=== PATIENT | female | born 1980 | race Caucasian/White ===

== ENCOUNTER 2016-11-09 09:57 | Day surgery (SDC) | payer OTHER ==
[~2016-11-09 09:57] MED LIST: Lactated Ringers 1,000 ML IV SCH
[2016-11-09] MEDS ORDERED: Sodium Chloride 0.9% 2.5 ML Syringe FLUSH PRN (10:11)
[2016-11-09] MEDS ORDERED: fentaNYL 100 MCG/2 ML SDV IVPUSH PRN (10:11)
[2016-11-09] MEDS ORDERED: Sodium Chloride 0.9% 10 ML Syringe FLUSH PRN (10:11)
--- NOTE | 2016-11-09 10:30 | PCM.PREANE ---
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: Musculoskeletal History: Reports: None Neurological History: Reports: Other (see below) Other Neuro History: hx of motion sickness Psychiatric History: Reports: None Endocrine/Metabolic History: Reports: Obesity/BMI 30+ Hematologic History: Reports: None Immunologic History: Reports: None Oncologic (Cancer) History: Reports: None Dermatologic History: Reports: None - Past Surgical History Head Surgeries/Procedures: Reports: None HEENT Surgical History: Reports: Oral surgery Cardiovascular Surgical History: Reports: None Respiratory Surgical History: Reports: None GI Surgical History: Reports: Appendectomy, Other (see below) Other GI Surgeries/Procedures: excision of Pilonidal Cyst Female Surgical History: Reports: D&C Endocrine Surgical History: Reports: None Neurological Surgical History: Reports: None Musculoskeletal Surgical History: Reports: None Oncologic Surgical History: Reports: None - SUBSTANCE USE Smoking Status *Q: Current Every Day Smoker (1/2-1 ppd) Tobacco Use Within Last Twelve Months: Cigarettes Recreational Drug Use History: No - HOME MEDS Home Medications: Home Meds Multivitamin [Daily Multiple Vitamin] 1 tab PO DAILY 11/08/16 [History] - CURRENT (IN HOUSE) MEDS Current Meds: Current Medications Fentanyl (Sublimaze) 50 mcg IVPUSH Q5M PRN PRN Reason: Pain (severe 7-10) Stop: 11/10/16 10:11 Lactated Ringer's (Ringers, Lactated) 1,000 mls @ 125 mls/hr IV ASDIRECTED [place] Sodium Chloride (Saline Flush) 10 ml FLUSH ASDIRECTED PRN PRN Reason: Keep Vein Open Sodium Chloride (Saline Flush) 2.5 ml FLUSH ASDIRECTED PRN PRN Reason: Keep Vein Open Preanesthetic Assessment - ANESTHESIA/TRANSFUSION/FAMILY HX Anesthesia/Transfusion History: Prior Anesthesia Type of Anesthesia Reaction: Denies: Allergy, Anesthesia Awareness, Excessive Somnolence, Excessive Nausea/Vomiting, Excessive Itching, Excessive Shivering, Malignant Hyperthermia, Malignant Hyperthermia, Family History, Pseudocholinesterase Deficiency, Pseudocholinesterase Deficiency, Family History of, Urinary Retention, Unknown, Other (see below) Family History of Anesthesia Reaction: No Other Intubation History Comment: no known problems - REVIEW OF SYSTEMS Constitutional: Reports: no symptoms 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 Respiratory: Reports: no symptoms Cardiovascular: Reports: no symptoms GI: Reports: no symptoms Other: Reports: None - PHYSICAL ASSESSMENT Height: 1.64 m Weight: 84.368 kg ASA Class: 2 Mental Status: Alert & Oriented x3 Airway Class: Mallampati = 2 Dentition: Reports: Normal Dentition (lower retainer) Thyro-Mental Finger Breadths: 3 Mouth Opening Finger Breadths: 3 ROM/Head Extension: Full Respiratory Status: lungs clear to auscultation bilaterally Cardiovascular Status: regular rate & rhythm, normal S1, S2, no murmur, blood pressure WNL - ALLERGIES Allergies/Adverse Reactions: Allergies Allergy/AdvReac Type Severity Reaction Status Date / Time Penicillins Allergy Rash Verified 11/08/16 16:44 - BLOOD Blood Available: No - ANESTHESIA PLAN Preop Beta Cesar: No Anesthesia Type Planned: General Anesthesia - ACKNOWLEDGEMENTS Pt an Appropriate Candidate for the Planned Anesthesia: Yes Alternatives and Risks of Anesthesia Discussed w Pt/Guardian: Yes Pt/Guardian Understands and Agrees with Anesthesia Plan: Yes
[2016-11-09] MEDS ORDERED: Scopolamine 1.5 MG Transdermal Patch TRDERM PRN (10:31)
[2016-11-09] MEDS ORDERED: Lidocaine 2% 5 ML SDV ONE (11:06)
[2016-11-09] MEDS ORDERED: Ondansetron 4 MG/2 ML SDV ONE (11:06)
[2016-11-09] MEDS ORDERED: fentaNYL 250 MCG/5 ML SDV ONE (11:07)
[2016-11-09] MEDS ORDERED: Propofol 200 MG/20 ML SDV ONE (11:07)
[2016-11-09] MEDS ORDERED: Midazolam 1 MG/ML 2 ML SDV ONE (11:07)
[2016-11-09] MEDS ORDERED: Phenylephrine/Normal Saline 100 MCG/ML 10 ML Syringe ONE (12:07)
--- NOTE | 2016-11-09 12:24 | PCM.OPNOTE ---
- General Post-Op/Procedure Note Date of Surgery/Procedure: 11/09/16 Operative Procedure(s): suction dilatation and curettage Findings: Uterus sounds to 9 cm, anteverted, cervix 10 mm dilated, moderate tissue obtained. Pre Op Diagnosis: incomplete Post-Op Diagnosis: Same Anesthesia Technique: General ET tube Primary Surgeon: Kell Jones Anesthesia Provider: Keyshawn Knight Pathology: products of conception EBL in mLs: 100 Complications: None Known Condition: Good
[2016-11-09] MEDS ORDERED: Meperidine PF 25 MG/ML Syringe ONE (12:29)
--- NOTE | 2016-11-09 13:16 | OR ---
SURGEON: Kell Jones M.D. DATE OF PROCEDURE: 11/09/2016 PREOPERATIVE DIAGNOSIS: Incomplete miscarriage. POSTOPERATIVE DIAGNOSIS: Incomplete miscarriage. PROCEDURE: Suction dilatation and curettage. ANESTHESIA: General endotracheal. ESTIMATED BLOOD LOSS: 100 mL. FINDINGS: Uterus is anteverted, sounded to 9 cm. Cervix was dilated to 10 mm. A moderate amount of tissue was obtained. COMPLICATIONS: None known. DISPOSITION: Stable to recovery. BRIEF HISTORY: This is a 35-year-old female. She is G7, P3. She had an abnormal . She would currently be approximately 10 weeks' gestation. There were three small cystic areas in the endometrium none of which developed into a significant gestational sac, and no embryo was ever identified. Her hormone hCG level had fallen slightly but was still above 10,000. She has received 3 trials of Cytotec and has been unable to pass the tissue at home. She received Cytotec 4 days ago as well as Methergine and over the weekend she had significant bleeding. She states that there was an episode where she felt very dizzy but she did not go to the emergency room. She called yesterday to report that she felt that she had completed the miscarriage as her bleeding had been resolved, however, ultrasound yesterday still showed a 16 mm thickened endometrium with Doppler flow. Therefore, I did recommend proceeding with a suction D and C, with risks discussed including bleeding, infection, uterine perforation with injury to surrounding organs, risk of hysterectomy, risk of Asherman syndrome, and risk of anesthesia. Understanding all these risks, she does desire to proceed. DESCRIPTION OF PROCEDURE: With the patient in the dorsal lithotomy position, under adequate general endotracheal anesthesia, the perineum and vagina were prepped with Betadine and draped in usual fashion for vaginal surgery. A bimanual examination was performed with the finding of a 9-week size anteverted uterus. The cervix completely dilated. I was able to pass my finger into the cervical canal where tissue was obtained. A speculum was then placed in the vagina. The anterior cervix was grasped with an Allis clamp. A ring forceps was placed through the open cervical os and further tissue was obtained. This was sent as separate specimens as they were visible at the time of speculum examination. The uterus was then sounded and sounded to 9 cm. A 10 mm suction cannula was then placed to the uterine fundus and with the suction on, was retracted repetitively, on the third pass a discrete structure of tissue was obtained. Additional passes revealed no further tissue and minimal bleeding. Sharp curettage was very gently performed at the 12, 3, 6, and 9 o'clock position. No additional tissue was obtained and a good uterine cry was felt. Therefore, all the instruments were removed from the vagina. Final sponge, needle, and instrument counts were reported as correct. There were no known complications. The patient is currently in the process of being transferred to recovery in good condition. KENNY PINZON /[id number]
[2016-11-09 13:39] VITALS: BP 91/60
== END 2016-11-09 14:00 | disposition home or self-care (01) ==
LOC: MW.SDS 09:57
PROVIDERS: ATTEND Obstetrics & Gynecology
PROC: 10D17ZZ Extraction of Products of Conception, Retained, Via Natural or Artificial Opening (ICD-10-PCS; principal; 2016-11-09)
DX: O03.4 Incomplete spontaneous abortion without complication (principal); O99.331 Smoking (tobacco) complicating pregnancy, first trimester
CPT/HCPCS: 36415; 59820; 85027; 86850; 86900; 86901; A9270; J2175; J2250; J2405; J3010; J7120; 01965; 88305; J2704

== ENCOUNTER 2016-12-11 14:48 | Emergency (ER) | payer OTHER ==
[2016-12-11] MEDS ORDERED: Lidocaine 1% with EPINEPHrine 1:100,000 20 ML MDV INJECT ONE (15:40)
[2016-12-11] MEDS ORDERED: Ketorolac 60 MG/2 ML SDV IM ONE (15:40)
[2016-12-11] MEDS ORDERED: cefTRIAXone 2,000 MG in Lidocaine 1% 4 ML IM ONE (16:26)
--- NOTE | 2016-12-11 16:35 | EDM.PDOC ---
ED HPI Skin/Rash - General Chief Complaint: Skin Complaint Stated Complaint: ABCESS Time Seen by Provider: 12/11/16 15:40 Source: Reports: Patient History Limitations: Reports: No limitations - History of Present Illness INITIAL COMMENTS - FREE TEXT/NARRATIVE: History of present illness: [25-year-old female comes in complaining of any abscess to her left thigh. Patient one approximately year ago on her right inner thigh that resolved after an I&D. Patient indicates she is prone to me and she doesn't really know why she makes these except that they get much worse when she is on control. Patient has come to have this drained and antibiotics so she could heal.] Review of systems: As per history of present illness and below otherwise all systems reviewed and negative. Past medical history: As per history of present illness and as reviewed below otherwise noncontributory. Surgical history: As per history of present illness and as reviewed below otherwise noncontributory. Social history: No reported history of drug or alcohol abuse. Family history: As per history of present illness and as reviewed below otherwise noncontributory. Physical exam: HEENT: Atraumatic, normocephalic, pupils reactive, negative for conjunctival pallor or scleral icterus, mucous membranes moist, throat clear, neck supple, nontender, trachea midline. Lungs: Clear to auscultation, breath sounds equal bilaterally, chest nontender. Heart: S1S2, regular, negative for clicks, rubs, or JVD. Abdomen: Soft, nondistended, nontender. Negative for masses or hepatosplenomegaly. Negative for costovertebral tenderness. Pelvis: Stable nontender. Genitourinary: Deferred. Rectal: Deferred. Extremities: Atraumatic, negative for cords or calf pain. Neurovascular unremarkable. Neuro: Awake, alert, oriented. Cranial nerves II through XII unremarkable. Cerebellum unremarkable. Motor and sensory unremarkable throughout. Exam nonfocal. Skin: A 3 cm region noted to be purple and tumescent with a Bullseye pattern of erythema to the skin approximately 5-6 cm around the firmness and no ability to appreciate solid areas outside the original stone. It appears that it has come to ahead and drained slightly. He continues to be red purple boggy. Area cleaned and injected with lidocaine with epi approximately 3 ml. After anesthesia was appreciated at the center of the tumescent abscess was passed with significant amount of purulent drainage flowing freely cultures obtained. After area was fully drained with some amount of walking erythematous area noted to be less prominent. Area irrigated with normal saline and packed with quarter-inch iodoform gauze. Diagnostics: [] Therapeutics: [I&D left inner thigh] Impression: [Infectious abscess with cellulitis] Plan: [2 g Rocephin here back from home] Definitive disposition and diagnosis as appropriate pending reevaluation and review of above. - Related Data Allergies Allergy/AdvReac Type Severity Reaction Status Date / Time Penicillins Allergy Rash Verified 12/11/16 15:38 Home Meds: Ambulatory Orders Medication Instructions Recorded Confirmed Multivitamin [Daily Multiple 1 tab PO DAILY 11/08/16 11/08/16 Vitamin] Sulfamethoxazole/Trimethoprim 1 each PO BID #28 tablet 12/11/16 [Bactrim Ds Tablet] Past Medical History HEENT History: Reports: Impaired vision Other HEENT History: wears glasses/contacts Cardiovascular History: Reports: None Respiratory History: Reports: None Gastrointestinal History: Reports: None Genitourinary History: Reports: None 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: Musculoskeletal History: Reports: None Neurological History: Reports: Other (see below) Other Neuro History: hx of motion sickness Psychiatric History: Reports: None Endocrine/Metabolic History: Reports: Obesity/BMI 30+ Hematologic History: Reports: None Immunologic History: Reports: None Oncologic (Cancer) History: Reports: None Dermatologic History: Reports: None - Past Surgical History Head Surgeries/Procedures: Reports: None HEENT Surgical History: Reports: Oral surgery Cardiovascular Surgical History: Reports: None Respiratory Surgical History: Reports: None GI Surgical History: Reports: Appendectomy, Other (see below) Other GI Surgeries/Procedures: excision of Pilonidal Cyst Female Surgical History: Reports: D&C Endocrine Surgical History: Reports: None Neurological Surgical History: Reports: None Musculoskeletal Surgical History: Reports: None Oncologic Surgical History: Reports: None Social & Family History - Family History Family Medical History: Noncontributory - Tobacco Use Smoking Status *Q: Current Every Day Smoker Years of Tobacco use: 15 Packs/Tins Daily: 1 - Recreational Drug Use Recreational Drug Use: No Drug Use in Last 12 Months: No ED ROS GENERAL - Review of Systems Review Of Systems: See Below (See history of present illness) ED EXAM, SKIN/RASH Exam: See Below (History of present illness) Course - Vital Signs Last Recorded V/S: Last Vital Signs Temp 36.8 C 12/11/16 15:39 Pulse 104 H 12/11/16 15:39 Resp 18 12/11/16 15:39 BP 142/84 H 12/11/16 15:39 Pulse Ox 98 12/11/16 15:39 - Orders/Labs/Meds Meds: Medications Discontinued Medications Generic Name Dose Route Start Last Admin Trade Name Maribel PRN Reason Stop Dose Admin Ketorolac Tromethamine 60 mg 12/11/16 15:40 12/11/16 15:53 Toradol IM 12/11/16 15:41 60 mg ONETIME ONE Administration Lidocaine/Epinephrine 20 ml 12/11/16 15:40 12/11/16 15:53 Xylocaine 1% With Epinephrine 1:100,000 INJECT 12/11/16 15:41 20 ml ONETIME ONE Administration Departure - Departure Time of Disposition: 16:42 Disposition: Home, Self-Care 01 Condition: good Clinical Impression: Abscess Forms: ED Department Discharge Additional Instructions: The following information is given to patients seen in the emergency department who are being discharged to home. This information is to outline your options for follow-up care. We provide all patients seen in our emergency department with a follow-up referral. The need for follow-up, as well as the timing and circumstances, are variable depending upon the specifics of your emergency department visit. If you don't have a primary care physician on staff, we will provide you with a referral. We always advise you to contact your personal physician following an emergency department visit to inform them of the circumstance of the visit and for follow-up with them and/or the need for any referrals to a consulting specialist. The emergency department will also refer you to a specialist when appropriate. This referral assures that you have the opportunity for follow-up care with a specialist. All of these measure are taken in an effort to provide you with optimal care, which includes your follow-up. Under all circumstances we always encourage you to contact your private physician who remains a resource for coordinating your care. When calling for follow-up care, please make the office aware that this follow-up is from your recent emergency room visit. If for any reason you are refused follow-up, please contact the [facility] Emergency Department at and asked to speak to the emergency department charge nurse. Take medication as directed Followup with primary care provider in one to 2 days Return to ED as needed as discussed
[2016-12-11 17:14] VITALS: BP 130/79
== END 2016-12-11 17:15 | disposition home or self-care (01) ==
LOC: MW.ED 14:48
DX: L02.416 Cutaneous abscess of left lower limb (principal); L03.116 Cellulitis of left lower limb; E66.9 Obesity, unspecified; Z68.30 Body mass index [BMI] 30.0-30.9, adult; Z90.49 Acquired absence of other specified parts of digestive tract; Z98.890 Other specified postprocedural states; F17.210 Nicotine dependence, cigarettes, uncomplicated; Z88.0 Allergy status to penicillin
CPT/HCPCS: 10061; 96372; 99283; J0696; J1885; 87070; 87077; 87186

== ENCOUNTER 2017-04-04 08:37 | Day surgery (SDC) | payer OTHER ==
--- NOTE | 2017-04-04 08:34 | PCM.PREANE ---
Preanesthetic Assessment - Anesthesia/Transfusion/Family Hx Anesthesia History: Prior Anesthesia Without Reaction Other Type of Anesthesia Reaction Comment: has Scopalamine Patch prescribed to put on PM before surgery Family History of Anesthesia Reaction: No Transfusion History: No Prior Transfusion(s) - Review of Systems General: No Symptoms Pulmonary: No Symptoms Cardiovascular: No Symptoms Gastrointestinal: No Symptoms Neurological: No Symptoms Other: Reports: None - Physical Assessment NPO Status Date: 04/03/17 Height: 1.64 m Weight: 80.286 kg ASA Class: 2 Mental Status: Alert & Oriented x3 Airway Class: Mallampati = 2 Dentition: Reports: Normal Dentition ROM/Head Extension: Full Lungs: Clear to Auscultation, Normal Respiratory Effort Cardiovascular: Regular Rate, Regular Rhythm - Allergies Allergies/Adverse Reactions: Allergies Allergy/AdvReac Type Severity Reaction Status Date / Time Penicillins Allergy Rash Verified 04/01/17 17:30 sulfamethoxazole Allergy Rash Verified 04/01/17 17:30 [From Bactrim] trimethoprim [From Bactrim] Allergy Rash Verified 04/01/17 17:30 - Anesthesia Plan Pre-Op Medication Ordered: None - Acknowledgements Anesthesia Type Planned: MAC Pt an Appropriate Candidate for the Planned Anesthesia: Yes Alternatives and Risks of Anesthesia Discussed w Pt/Guardian: Yes Pt/Guardian Understands and Agrees with Anesthesia Plan: Yes Additional Comments: PMH: PCOS, thyroid replacement PreAnesthesia Questionnaire HEENT History: Reports: Impaired Vision Other HEENT History: wears glasses/contacts Cardiovascular History: Reports: None Respiratory History: Reports: None Gastrointestinal History: Reports: None Genitourinary History: Reports: None 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: , 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 Musculoskeletal History: Reports: None Neurological History: Reports: Other (See Below) Other Neuro History: hx of motion sickness Psychiatric History: Reports: None Endocrine/Metabolic History: Reports: Obesity/BMI 30+ Hematologic History: Reports: None Immunologic History: Reports: None Oncologic (Cancer) History: Reports: None Dermatologic History: Reports: None - Past Surgical History Head Surgeries/Procedures: Reports: None HEENT Surgical History: Reports: Oral Surgery Cardiovascular Surgical History: Reports: None Respiratory Surgical History: Reports: None GI Surgical History: Reports: Appendectomy, Other (See Below) Other GI Surgeries/Procedures: excision of Pilonidal Cyst Female Surgical History: Reports: D&C Endocrine Surgical History: Reports: None Neurological Surgical History: Reports: None Musculoskeletal Surgical History: Reports: None Oncologic Surgical History: Reports: None - SUBSTANCE USE Smoking Status *Q: Former Smoker Tobacco Use Within Last Twelve Months: Cigarettes Recreational Drug Use History: No - HOME MEDS Home Medications: Home Meds Multivitamin [Daily Multiple Vitamin] 1 tab PO DAILY 11/08/16 [History] Vitamin B Complex 1 cap PO DAILY 04/01/17 [History] - CURRENT (IN HOUSE) MEDS Current Meds: Current Medications Lactated Ringer's (Ringers, Lactated) 1,000 mls @ 125 mls/hr IV ASDIRECTED [place]
[2017-04-04] MEDS ORDERED: fentaNYL 100 MCG/2 ML SDV ONE (09:04)
[2017-04-04] MEDS ORDERED: Propofol 200 MG/20 ML SDV ONE ×2 (09:04→10:14)
[2017-04-04] MEDS ORDERED: Ondansetron 4 MG/2 ML SDV ONE (09:05)
[2017-04-04] MEDS ORDERED: Midazolam 1 MG/ML 2 ML SDV ONE (09:05)
[2017-04-04] MEDS ORDERED: Ketorolac 30 MG/ML SDV ONE (10:09)
--- NOTE | 2017-04-04 10:20 | PCM.OPNOTE ---
- General Post-Op/Procedure Note Date of Surgery/Procedure: 04/04/17 Operative Procedure(s): Suction Dilatation and Curettage Findings: uterus anteverted sounds to 10 cm. Postop, anterverted, firm minimal bleeding 8 week size Moderate amount of retained products of conception Pre Op Diagnosis: Missed Post-Op Diagnosis: Same Anesthesia Technique: MAC Primary Surgeon: Kell Jones Anesthesia Provider: Keyshawn Chase Lacer And Tier: Silverio Castillo Pathology: products of conception Fluid Replacement, Intraop: 500 EBL in mLs: 20 Complications: None known Condition: Good
--- NOTE | 2017-04-04 10:42 | PCM.POSTAN ---
POST ANESTHESIA ASSESSMENT - MENTAL STATUS Mental Status: Alert, Oriented - RESPIRATORY Respiratory Status: Respiratory Rate WNL, Airway Patent, O2 Saturation Stable - CARDIOVASCULAR CV Status: Pulse Rate WNL, Blood Pressure Stable - GASTROINTESTINAL GI Status: No Symptoms - POST OP HYDRATION Hydration Status: Adequate & Stable
--- NOTE | 2017-04-04 10:42 | PCM48HPAN ---
Post Anesthesia Note - EVALUATION WITHIN 48HRS OF ANESTHETIC Vital Signs in Normal Range: Yes Patient Participated in Evaluation: Yes Respiratory Function Stable: Yes Airway Patent: Yes Cardiovascular Function Stable: Yes Hydration Status Stable: Yes Pain Control Satisfactory: Yes Nausea and Vomiting Control Satisfactory: Yes Mental Status Recovered: Yes
[2017-04-04 11:30] VITALS: BP 96/63
--- NOTE | 2017-04-04 17:56 | OR ---
SURGEON: Kell Jones M.D. DATE OF PROCEDURE: 04/04/2017 PREOPERATIVE DIAGNOSIS: Missed . POSTOPERATIVE DIAGNOSIS: Missed . PROCEDURES: Suction, dilatation, and curettage. 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 ANESTHESIA: Monitored anesthetic care. ESTIMATED BLOOD LOSS: 20 mL. FINDINGS: Preoperatively uterus was sounded to 10 cm. Cervix was easily dilated to a 12 mm Hegar dilator. Postoperatively, the uterus was firm with no bleeding and 8- week size. COMPLICATIONS: None known. DISPOSITION: Stable to recovery. BRIEF HISTORY: This is a 36-year-old female, she has had moderate to heavy bleeding. Ultrasound shows a large gestational sac. Initially, there was an embryo with a slow heart beat. The embryo was no longer identified. She has had two placements of Cytotec without success and is now agreeable to proceeding with a suction, dilatation, and curettage with risks including bleeding, infection, and uterine perforation with injury to surrounding organs, including a small risk of hysterectomy, risk of Asherman's syndrome, and risk of anesthesia. Understanding all these risks, she does desire to proceed. She is known to be Rh positive. Her OB history is that she is G8, P3-0-4-3. Her last spontaneous was in October of 2016. She had a normal vaginal delivery in June of 2012. DESCRIPTION OF PROCEDURE: The patient in dorsal lithotomy position, under adequate monitored anesthetic care, the perineum and vagina were prepped with Betadine and draped in usual fashion for vaginal surgery. The bladder had been drained with a straight catheter. SCDs were in place and an appropriate time-out was held. Bimanual examination was performed with findings noted above. The speculum was placed in the vagina. The cervix was grasped with an Allis clamp and the cervix was easily dilated to a 12 mm Hegar dilator. A 12 mm straight suction curette was then placed to the uterine fundus and with repetitive turning motion retracted from the cervix. A large amount of tissue was obtained on the first pass. Multiple additional passes were taken with no additional tissue. Sharp curettage was performed at 12, 3, 6, and 9 o'clock positions with a good uterine cry felt and no further tissue obtained. One additional pass was taken with the suction curette with no further tissue or bleeding. Therefore, all of the instruments were removed from the vagina. Final sponge, needle, and instrument counts were reported as correct. There were no known complications. The patient was transferred to the recovery in good condition. KENNY PINZON /[id number] MTDD
== END 2017-04-04 11:25 | disposition home or self-care (01) ==
LOC: MW.SDS 08:37
PROVIDERS: ATTEND Obstetrics & Gynecology
PROC: 10D17ZZ Extraction of Products of Conception, Retained, Via Natural or Artificial Opening (ICD-10-PCS; principal; 2017-04-04)
DX: O02.1 Missed abortion (principal); Z87.891 Personal history of nicotine dependence; Z90.49 Acquired absence of other specified parts of digestive tract; Z98.890 Other specified postprocedural states; Z79.899 Other long term (current) drug therapy; Z88.0 Allergy status to penicillin; Z88.2 Allergy status to sulfonamides
CPT/HCPCS: 36415; 59820; 85027; 86787; 86850; 86900; 86901; J1885; J2250; J2405; J3010; J7120; 00952; 88305; J2704

== ENCOUNTER 2017-12-12 08:57 | Day surgery (SDC) | payer OTHER ==
--- NOTE | 2017-12-12 09:41 | PCM.PREANE ---
Preanesthetic Assessment - Anesthesia/Transfusion/Family Hx Anesthesia History: Prior Anesthesia Without Reaction Other Type of Anesthesia Reaction Comment: has Scopalamine Patch prescribed to put on PM before surgery Family History of Anesthesia Reaction: No Transfusion History: No Prior Transfusion(s) Intubation History: Unknown - Review of Systems General: No Symptoms Pulmonary: No Symptoms Cardiovascular: No Symptoms Gastrointestinal: No Symptoms Neurological: No Symptoms Other: Reports: None - Physical Assessment O2 Sat by Pulse Oximetry: 97 Respiratory Rate: 16 Vital Signs: Last Vital Signs Temp 36.5 C 12/12/17 09:16 Pulse 80 12/12/17 09:16 Resp 16 12/12/17 09:16 BP 122/64 12/12/17 09:16 Pulse Ox 97 12/12/17 09:16 Height: 1.64 m Weight: 84.368 kg ASA Class: 2 Mental Status: Alert & Oriented x3 Airway Class: Mallampati = 2 Dentition: Reports: Normal Dentition Thyro-Mental Finger Breadths: 2 Mouth Opening Finger Breadths: 3 ROM/Head Extension: Full Lungs: Clear to Auscultation, Normal Respiratory Effort Cardiovascular: Regular Rate, Regular Rhythm - Lab Values: Laboratory Last Values WBC 8.33 K/uL (4.0-11.0) 12/11/17 13:34 RBC 4.11 M/uL (4.30-5.90) L 12/11/17 13:34 Hgb 12.5 g/dL (12.0-16.0) 12/11/17 13:34 Hct 36.6 % (36.0-46.0) 12/11/17 13:34 MCV 89.1 fL (80.0-98.0) 12/11/17 13:34 MCH 30.4 pg (27.0-32.0) 12/11/17 13:34 MCHC 34.2 g/dL (31.0-37.0) 12/11/17 13:34 RDW Std Deviation 40.6 fl (28.0-62.0) 12/11/17 13:34 RDW Coeff of Edlia 13 % (11.0-15.0) 12/11/17 13:34 Plt Count 232 K/uL (150-400) 12/11/17 13:34 MPV 9.10 fL (7.40-12.00) 12/11/17 13:34 Nucleated RBC % 0.0 /100WBC 12/11/17 13:34 Nucleated RBCs # 0 K/uL 12/11/17 13:34 Blood Type A POSITIVE 12/11/17 13:34 Antibody Screen NEGATIVE 12/11/17 13:34 - Allergies Allergies/Adverse Reactions: Allergies Allergy/AdvReac Type Severity Reaction Status Date / Time Penicillins Allergy Rash Verified 12/07/17 13:03 sulfamethoxazole Allergy Rash Verified 12/07/17 13:03 [From Bactrim] trimethoprim [From Bactrim] Allergy Rash Verified 12/07/17 13:03 - Blood Blood Available: No - Anesthesia Plan Pre-Op Medication Ordered: None - Acknowledgements Anesthesia Type Planned: General Anesthesia Pt an Appropriate Candidate for the Planned Anesthesia: Yes Alternatives and Risks of Anesthesia Discussed w Pt/Guardian: Yes Pt/Guardian Understands and Agrees with Anesthesia Plan: Yes PreAnesthesia Questionnaire HEENT History: Reports: Allergic Rhinitis, Impaired Vision Other HEENT History: wears glasses/contacts, bottom permanent dental retainer Cardiovascular History: Reports: Heart Murmur Respiratory History: Reports: None Gastrointestinal History: Reports: Other (See Below) Other Gastrointestinal History: occasional heartburn Genitourinary History: Reports: None [employer] History: Reports: , Spontaneous Musculoskeletal History: Reports: None Neurological History: Reports: Concussion, Other (See Below) Other Neuro History: hx of motion sickness Psychiatric History: Reports: None Endocrine/Metabolic History: Reports: Obesity/BMI 30+ Hematologic History: Reports: None Immunologic History: Reports: None Oncologic (Cancer) History: Reports: None Dermatologic History: Reports: None - Past Surgical History Head Surgeries/Procedures: Reports: None HEENT Surgical History: Reports: Oral Surgery Cardiovascular Surgical History: Reports: None Respiratory Surgical History: Reports: None GI Surgical History: Reports: Appendectomy, Other (See Below) Other GI Surgeries/Procedures: excision of Pilonidal Cyst Female Surgical History: Reports: D&C (x3) Endocrine Surgical History: Reports: None Neurological Surgical History: Reports: None Musculoskeletal Surgical History: Reports: None Oncologic Surgical History: Reports: None - SUBSTANCE USE Smoking Status *Q: Light Tobacco Smoker Tobacco Use Within Last Twelve Months: Cigarettes Recreational Drug Use History: No - HOME MEDS Home Medications: Home Meds Multivitamin [Daily Multiple Vitamin] 1 tab CHEW DAILY 11/08/16 [History] Vitamin B Complex 1 cap PO DAILY 04/01/17 [History] Calcium Carbonate [Tums] 1 tab.chew CHEW ASDIRECTED PRN 12/07/17 [History] Ondansetron HCl [Zofran] 4 mg PO ASDIRECTED PRN 12/07/17 [History] - CURRENT (IN HOUSE) MEDS Current Meds: Current Medications Lactated Ringer's (Ringers, Lactated) 1,000 mls @ 125 mls/hr IV ASDIRECTED [place] Last Admin: 12/12/17 09:17 Dose: 125 mls/hr
[2017-12-12] MEDS ORDERED: Midazolam 1 MG/ML 2 ML SDV ONE (10:23)
[2017-12-12] MEDS ORDERED: Propofol 200 MG/20 ML SDV ONE (10:23)
[2017-12-12] MEDS ORDERED: fentaNYL 100 MCG/2 ML SDV ONE (10:23)
[2017-12-12] MEDS ORDERED: Glycopyrrolate 0.2 MG/ML SDV ONE (10:48)
[2017-12-12] MEDS ORDERED: Ondansetron 4 MG/2 ML SDV ONE (10:48)
[2017-12-12] MEDS ORDERED: Ketorolac 30 MG/ML SDV ONE (10:48)
[2017-12-12] MEDS ORDERED: Methylergonovine 0.2 MG/1 ML Amp ONE (11:14)
--- NOTE | 2017-12-12 11:36 | PCM.OPNOTE ---
- General Post-Op/Procedure Note Date of Surgery/Procedure: 12/12/17 Operative Procedure(s): Suction D&C Findings: Preop: uterus 12 wks size, boggy, sounded to 14 cm. Post-op: anteverted, 8 wks size, firm. Amniotic sac, tissue suctioned and will be sent to pathology. Pre Op Diagnosis: demise with missed @ 12 weeks, AMA, abnormal chromosomes on NIPT Post-Op Diagnosis: same Anesthesia Technique: General LMA Primary Surgeon: Kell Jones Compressor Battery Pellets: Nadine Anderson Fluid Replacement, Intraop: 800 EBL in mLs: 600 Complications: None Known Condition: Stable
--- NOTE | 2017-12-12 12:18 | PCM48HPAN ---
Post Anesthesia Note - EVALUATION WITHIN 48HRS OF ANESTHETIC Vital Signs in Normal Range: Yes Patient Participated in Evaluation: Yes Respiratory Function Stable: Yes Airway Patent: Yes Cardiovascular Function Stable: Yes Hydration Status Stable: Yes Pain Control Satisfactory: Yes Nausea and Vomiting Control Satisfactory: Yes Mental Status Recovered: Yes Resp Rate: 13 - COMMENTS/OBSERVATIONS Free Text/Narrative:: no anesthesia problems
--- NOTE | 2017-12-12 12:36 | OR ---
SURGEON: Kell Jones M.D. DATE OF PROCEDURE: 12/12/2017 PREOPERATIVE DIAGNOSIS: An 11-week incomplete miscarriage. POSTOPERATIVE DIAGNOSIS: An 11-week incomplete miscarriage. PROCEDURE: Suction, dilatation, and curettage. HEDIS REVIEW NURSE: Larisa Anderson MS-4. ANESTHESIA: General LMA. ESTIMATED BLOOD LOSS: 600 mL. FLUIDS: 800 mL crystalloid. FINDINGS: Preoperatively, uterus was boggy, 12 week size, anteverted, sounded to 14 cm. Cervix was easily dilated to a 12 mm Hegar dilator. Postoperatively, the uterus was anteverted to 8 week size, very firm with minimal bleeding. COMPLICATIONS: None known. DISPOSITION: Stable to recovery. BRIEF HISTORY: This is a 36-year-old female, she presents for suction D and C. 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 She understands that this is not a diagnostic test. She was scheduled for chorionic villus sampling in [place]. Prior to traveling to [place], she requested another ultrasound to confirm the viability of the fetus. An ultrasound showed an 11- week demised fetus that was markedly hydropic. She requests that she proceed directly with a suction D and C, as previously vaginal Cytotec did not work for her over prolonged period of time. This is her 6th loss and 3rd sequential loss. Risks of suction D and C were discussed including bleeding, infection, injury to surrounding organs if uterine perforation were to occur, risk of causing scarring or Asherman syndrome. Understanding all these risks, she does desire to proceed. DESCRIPTION OF PROCEDURE: With the patient in the dorsal lithotomy position, adequate LMA analgesia, the perineum and vagina were prepped with Betadine and draped in usual fashion for vaginal surgery. Bladder had been drained with a straight catheter. SCDs were in place and an appropriate time-out was held. Bimanual examination revealed a 12-week sized, boggy anteverted uterus with the cervix external os open 1+ cm, internal os soft, fingertip. A speculum was placed in the vagina. The anterior lip of the cervix was grasped with an Allis clamp. It was easily dilated to a 12 mm Hegar dilator. The 12-mm straight suction curette was placed to the uterine fundus and on the 1st pass, there was a large amount of tissue including what appeared to be amniotic sac, tissue, and placental tissue. Multiple additional passes were taken with repetitive turning motion and moderate amount of blood was obtained, but no further tissue. Therefore, sharp curettage was performed at the 12, 3, 6, and 9 o'clock positions. A good uterine cry was felt on all surfaces. Two additional passes were taken with the suction curette. There was no further tissue and IM Methergine had been given. There was still moderate amount of bleeding. Bimanual examination was performed with uterine massage and with this, the uterus was 8 week size, firm with minimal bleeding. The speculum was placed in the vagina. There was no active bleeding from the cervix. The speculum was removed. Final sponge, needle, and instrument counts were reported as correct. There were no known complications. The patient was transferred to recovery in good condition. KENNY PINZON /[id number]
[2017-12-12 13:08] VITALS: BP 98/52
== END 2017-12-12 12:15 | disposition home or self-care (01) ==
LOC: MW.SDS 08:57
PROVIDERS: ATTEND Obstetrics & Gynecology
DX: O02.1 Missed abortion (principal); Z88.0 Allergy status to penicillin; Z88.1 Allergy status to other antibiotic agents; Z88.2 Allergy status to sulfonamides; Z79.899 Other long term (current) drug therapy; Z87.891 Personal history of nicotine dependence; Z3A.11 11 weeks gestation of pregnancy
CPT/HCPCS: 59820; 85027; 86850; 86900; 86901; J1885; J2210; J2250; J2405; J3010; J7120; J2704

== ENCOUNTER 2019-10-03 01:10 | Emergency (ER) | payer BC, OTHER ==
--- NOTE | 2019-10-03 01:35 | EDM.PDOC ---
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 She admits that she does drink a lot of caffeinated products but also hydrates she has not had any associated symptoms such as nausea vomiting fevers chills or true CVA pain or tenderness. She has no upper respiratory symptoms and has an IUD in place. The patient has only had an appendectomy in the past and has not had any or renal issues. She took Tylenol for the discomfort earlier and says that her left lower back pain has improved but she still concerned about her urine. She does not recall that she has ever had a kidney stone in the past but she was initially presenting concerned about that but the pain is not spasming or intense and is more deep aching type of discomfort. She says that the discomfort in her pelvis is more of a burning sensation worse with urination but present even when she is not urinating. She did not take any over -the-counter meds such as Azo for this problem. Review of systems: As per history of present illness and below otherwise all systems reviewed and negative. Past medical history: As per history of present illness and as reviewed below otherwise noncontributory. Surgical history: As per history of present illness and as reviewed below otherwise noncontributory. Social history: No reported history of drug or alcohol abuse. Family history: As per history of present illness and as reviewed below otherwise noncontributory. Physical exam: Well-developed well-nourished nontoxic female who moves easily in the ED without any distress and who is vital signs are noted by me HEENT: Atraumatic, normocephalic, , negative for conjunctival pallor or scleral icterus, mucous membranes moist, throat clear, neck supple, nontender, trachea midline. Lungs: Clear to auscultation, breath sounds equal bilaterally, chest nontender. Heart: S1S2, regular rate and rhythm no overt murmurs Abdomen: Soft, nondistended, nontender. On deep palpation of the abdomen I am unable to sit any tenderness except a minimal amount in the suprapubic area. There is no localization of this discomfort right or left there is no rebound or guarding and bowel sounds are normoactive. There is no tympany on percussion negative for masses or hepatosplenomegaly. Negative for costovertebral tenderness. Pelvis: Stable nontender. Genitourinary: Deferred. Rectal: Deferred. Extremities: Atraumatic, negative for cords or calf pain. Neurovascular unremarkable. Neuro: Awake, alert, oriented. Cranial nerves II through XII unremarkable. Cerebellum unremarkable. Motor and sensory unremarkable throughout. Exam nonfocal. Diagnostics: UA with reflex BC CMP CT scan of the abdomen and pelvis Therapeutics: Toradol IM Flomax urine strainers I discussed with the patient concerns about a kidney stone versus just a simple UTI and at this point she would like to just test her urine and reevaluate pending those results. She says that her left back/flank pain has improved significantly with the Tylenol and and less the urine is not indicative of just a UTI she would not like to pursue the labs and CAT scan. 0143: As the UA is not convincing for UTI and discussed with the patient proceeding to the next level doing labs and a CAT scan and she is agreeable but would like to refrain from placing the IV at this time. Patient is still comfortable and having only minimal pain and no nausea or vomiting. She is aware of all testing results including the CT scan findings of the 3 x 2 mm distal UV J stone on the left and the incidental renal nephrolithiasis. We have also discussed her IUD placement and how she needs to follow-up with her [employer] to have a formal ultrasound to confirm its location and she states understanding. Impression: Left ureterolithiasis Definitive disposition and diagnosis as appropriate pending reevaluation and review of above. L flank Pain Score (Numeric/FACES): 4 - Related Data Allergies Allergy/AdvReac Type Severity Reaction Status Date / Time Penicillins Allergy Rash Verified 10/03/19 01:23 sulfamethoxazole Allergy Rash Verified 10/03/19 01:23 [From Bactrim] trimethoprim [From Bactrim] Allergy Rash Verified 10/03/19 01:23 Home Meds: Home Meds . [No Known Home Meds] 10/03/19 [History] Past Medical History HEENT History: Reports: Allergic Rhinitis, Impaired Vision Other HEENT History: wears glasses/contacts, bottom permanent dental retainer Cardiovascular History: Reports: Heart Murmur Respiratory History: Reports: None Gastrointestinal History: Reports: Other (See Below) Other Gastrointestinal History: occasional heartburn Genitourinary History: Reports: None OBSTETRICS GYN History: Reports: , Spontaneous Musculoskeletal History: Reports: None Neurological History: Reports: Concussion, Other (See Below) Other Neuro History: hx of motion sickness Psychiatric History: Reports: None Endocrine/Metabolic History: Reports: Obesity/BMI 30+ Hematologic History: Reports: None Immunologic History: Reports: None Oncologic (Cancer) History: Reports: None Dermatologic History: Reports: None - Past Surgical History Head Surgeries/Procedures: Reports: None HEENT Surgical History: Reports: Oral Surgery Cardiovascular Surgical History: Reports: None Respiratory Surgical History: Reports: None GI Surgical History: Reports: Appendectomy, Other (See Below) Other GI Surgeries/Procedures: excision of Pilonidal Cyst Female Surgical History: Reports: D&C (x3) Endocrine Surgical History: Reports: None Neurological Surgical History: Reports: None Musculoskeletal Surgical History: Reports: None Oncologic Surgical History: Reports: None Social & Family History - Family History Family Medical History: Noncontributory ED ROS GENERAL - Review of Systems Review Of Systems: Comprehensive ROS is negative, except as noted in HPI. ED EXAM, GENERAL - Physical Exam Exam: See Below (See dictation) Course - Vital Signs Last Recorded V/S: Last Vital Signs Temp 36.9 C 10/03/19 01:17 Pulse 68 10/03/19 01:17 Resp 17 10/03/19 01:17 BP 136/86 10/03/19 01:17 Pulse Ox 99 10/03/19 01:17 - Orders/Labs/Meds Orders: Active Orders 24 hr Category Date Time Status Communication Order [RC] STAT Care 10/03/19 02:28 Active Labs: Laboratory Tests 10/03/19 10/03/19 10/03/19 Range/Units 01:30 01:30 02:07 WBC 8.69 (4.0-11.0) K/uL RBC 4.69 (4.30-5.90) M/uL Hgb 14.2 (12.0-16.0) g/dL Hct 42.1 (36.0-46.0) % MCV 89.8 (80.0-98.0) fL MCH 30.3 (27.0-32.0) pg MCHC 33.7 (31.0-37.0) g/dL RDW Std Deviation 39.7 (28.0-62.0) fl RDW Coeff of Delia 12 (11.0-15.0) % Plt Count 244 (150-400) K/uL MPV 9.20 (7.40-12.00) fL Neut % (Auto) 67.8 (48.0-80.0) % Lymph % (Auto) 26.2 (16.0-40.0) % [place] % (Auto) 4.0 (0.0-15.0) % Eos % (Auto) 1.8 (0.0-7.0) % Baso % (Auto) 0.2 (0.0-1.5) % Neut # (Auto) 5.9 H (1.4-5.7) K/uL Lymph # (Auto) 2.3 (0.6-2.4) K/uL [place] # (Auto) 0.4 (0.0-0.8) K/uL Eos # (Auto) 0.2 (0.0-0.7) K/uL Baso # (Auto) 0.0 (0.0-0.1) K/uL Nucleated RBC % 0.0 /100WBC Nucleated RBCs # 0 K/uL Sodium (136-145) mmol/L Potassium (3.5-5.1) mmol/L Chloride (98-107) mmol/L Carbon Dioxide (21.0-32.0) mmol/L BUN (7.0-18.0) mg/dL Creatinine (0.6-1.0) mg/dL Est Cr Clr Drug Dosing mL/min Estimated GFR (MDRD) ml/min Glucose (74-106) mg/dL Calcium (8.5-10.1) mg/dL Total Bilirubin (0.2-1.0) mg/dL AST (15-37) IU/L ALT (14-63) IU/L Alkaline Phosphatase (46-116) U/L Total Protein (6.4-8.2) g/dL Albumin (3.4-5.0) g/dL Globulin (2.6-4.0) g/dL Albumin/Globulin Ratio (0.9-1.6) Urine Color YELLOW Urine Appearance CLEAR Urine pH 6.0 (5.0-8.0) Ur Specific [place] >= 1.030 (1.001-1.035) Urine Protein NEGATIVE (NEGATIVE) mg/dL Urine Glucose (UA) NEGATIVE (NEGATIVE) mg/dL Urine Ketones NEGATIVE (NEGATIVE) mg/dL Urine Occult Blood MODERATE H (NEGATIVE) Urine Nitrite NEGATIVE (NEGATIVE) Urine Bilirubin NEGATIVE (NEGATIVE) Urine Urobilinogen 1.0 (<2.0) EU/dL Ur Leukocyte Esterase NEGATIVE (NEGATIVE) Urine RBC 3-5 (0-2/HPF) Urine WBC 0-1 (0-5/HPF) Ur Epithelial Cells RARE (NONE-FEW) Urine Bacteria RARE (NEGATIVE) Urine HCG, Qual NEGATIVE (NEGATIVE) 10/03/19 Range/Units 02:07 WBC (4.0-11.0) K/uL RBC (4.30-5.90) M/uL Hgb (12.0-16.0) g/dL Hct (36.0-46.0) % MCV (80.0-98.0) fL MCH (27.0-32.0) pg MCHC (31.0-37.0) g/dL RDW Std Deviation (28.0-62.0) fl RDW Coeff of Delia (11.0-15.0) % Plt Count (150-400) K/uL MPV (7.40-12.00) fL Neut % (Auto) (48.0-80.0) % Lymph % (Auto) (16.0-40.0) % [place] % (Auto) (0.0-15.0) % Eos % (Auto) (0.0-7.0) % Baso % (Auto) (0.0-1.5) % Neut # (Auto) (1.4-5.7) K/uL Lymph # (Auto) (0.6-2.4) K/uL [place] # (Auto) (0.0-0.8) K/uL Eos # (Auto) (0.0-0.7) K/uL Baso # (Auto) (0.0-0.1) K/uL Nucleated RBC % /100WBC Nucleated RBCs # K/uL Sodium 140 (136-145) mmol/L Potassium 3.7 (3.5-5.1) mmol/L Chloride 104 (98-107) mmol/L Carbon Dioxide 29.0 (21.0-32.0) mmol/L BUN 11 (7.0-18.0) mg/dL Creatinine 0.9 (0.6-1.0) mg/dL Est Cr Clr Drug Dosing 73.90 mL/min Estimated GFR (MDRD) > 60.0 ml/min Glucose 116 H (74-106) mg/dL Calcium 8.3 L (8.5-10.1) mg/dL Total Bilirubin 0.5 (0.2-1.0) mg/dL AST 15 (15-37) IU/L ALT 41 (14-63) IU/L Alkaline Phosphatase 93 (46-116) U/L Total Protein 7.5 (6.4-8.2) g/dL Albumin 3.8 (3.4-5.0) g/dL Globulin 3.7 (2.6-4.0) g/dL Albumin/Globulin Ratio 1.0 (0.9-1.6) Urine Color Urine Appearance Urine pH (5.0-8.0) Ur Specific [place] (1.001-1.035) Urine Protein (NEGATIVE) mg/dL Urine Glucose (UA) (NEGATIVE) mg/dL Urine Ketones (NEGATIVE) mg/dL Urine Occult Blood (NEGATIVE) Urine Nitrite (NEGATIVE) Urine Bilirubin (NEGATIVE) Urine Urobilinogen (<2.0) EU/dL Ur Leukocyte Esterase (NEGATIVE) Urine RBC (0-2/HPF) Urine WBC (0-5/HPF) Ur Epithelial Cells (NONE-FEW) Urine Bacteria (NEGATIVE) Urine HCG, Qual (NEGATIVE) Meds: Medications Discontinued Medications Generic Name Dose Route Start Last Admin Trade Name Freq PRN Reason Stop Dose Admin Ketorolac Tromethamine 60 mg 10/03/19 02:34 Toradol IM 10/03/19 02:35 ONETIME ONE Tamsulosin HCl 0.4 mg 10/03/19 02:28 Flomax PO 10/03/19 02:29 ONETIME ONE Departure - Departure Time of Disposition: 02:39 Disposition: Home, Self-Care 01 Condition: Good Clinical Impression: Ureterolithiasis - Discharge Information Referrals: PCP,None [Primary Care Provider] - Forms: ED Department Discharge Additional Instructions: The following information is given to patients seen in the emergency department who are being discharged to home. This information is to outline your options for follow-up care. We provide all patients seen in our emergency department with a follow-up referral. The need for follow-up, as well as the timing and circumstances, are variable depending upon the specifics of your emergency department visit. If you don't have a primary care physician on staff, we will provide you with a referral. We always advise you to contact your personal physician following an emergency department visit to inform them of the circumstance of the visit and for follow-up with them and/or the need for any referrals to a consulting specialist. The emergency department will also refer you to a specialist when appropriate. This referral assures that you have the opportunity for followup care with a specialist. All of these measure are taken in an effort to provide you with optimal care, which includes your followup. Under all circumstances we always encourage you to contact your private physician who remains a resource for coordinating your care. When calling for followup care, please make the office aware that this follow-up is from your recent emergency room visit. If for any reason you are refused follow-up, please contact the [facility] emergency department at and ask to speak to the emergency department charge nurse. [facility] [place] [address] Push hydration and take Flomax daily as directed. Strain all urine looking for the stone as you have been shown the size. Please call and schedule a follow- up appointment with our urologist Dr. Medeiros for follow-up care to ensure that the stone has passed and to manage any future issues with kidney stones. Use [place] as prescribed but only take when you are at home and you may use over-the- counter meds for milder pain as we discussed. Return to ER as needed and as discussed Sepsis Event Note - Evaluation Sepsis Screening Result: No Definite Risk - Focused Exam Vital Signs: Vital Signs Temp Pulse Resp BP Pulse Ox 10/03/19 01:17 36.9 C 68 17 136/86 99 Date Exam was Performed: 10/03/19 Time Exam was Performed: 02:38 - My Orders Last 24 Hours: My Active Orders 10/03/19 02:28 Communication Order [RC] STAT - Assessment/Plan Last 24 Hours: My Active Orders 10/03/19 02:28 Communication Order [RC] STAT
--- NOTE | 2019-10-03 02:25 | CT ---
INDICATION: Left flank pain TECHNIQUE: CT abdomen and pelvis without contrast. COMPARISON: None. FINDINGS: Lower chest: Unremarkable. Liver: Normal in size and attenuation. No masses. Gallbladder and bile ducts: No stones or inflammation. No biliary dilatation. Pancreas: Unremarkable. No mass or inflammation. Spleen: Normal in size. No masses. Adrenal glands: Normal in size. No nodules. Kidneys: Nonobstructing nephrolithiasis left kidney with duplication anomaly. Trace hydronephrosis with a 3 x 2 millimeter obstructing stone at the ureterovesicular junction involving the upper pole ureter. Right kidney is mildly decreased in size relative to the left without evidence of hydronephrosis or ureteral stone. GI tract: Unremarkable. Normal in caliber. No sign of mass or inflammation. Normal appendix. Vasculature: Unremarkable. Pelvis: Intrauterine device in the uterus although its position appears a bit asymmetric with the left arm extending near the fundus of the uterus. Bones: Unremarkable for age. IMPRESSION: 1. 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 2. Somewhat angled position of intrauterine device, question whether the left arm extends into the myometrium at the fundus of the uterus. Follow-up outpatient pelvic ultrasound suggested for more specific evaluation of the positioning. Please note that all CT scans at this facility use dose modulation, iterative reconstruction, and/or weight-based dosing when appropriate to reduce radiation dose to as low as reasonably achievable. Dictated by Jam Navarrete MD @ Oct 03 2019 2:17AM Signed by Dr. Jam Navarrete @ Oct 03 2019 2:23AM
[2019-10-03] MEDS ORDERED: Tamsulosin 0.4 MG Cap.ER PO ONE (02:28)
[2019-10-03 02:32] LABS: BLOOD UREA NITROGEN,BUN 11 mg/dL (7.0-18.0); CHLORIDE,CL 104 mmol/L (98-107); GLUCOSE RANDOM 116 mg/dL (74-106); POTASSIUM,K 3.7 mmol/L (3.5-5.1); SODIUM,NA 140 mmol/L (136-145)
[2019-10-03] MEDS ORDERED: Ketorolac 60 MG/2 ML SDV IM ONE (02:34)
[2019-10-03 02:45] VITALS: BP 129/84; PULSE 58
== END 2019-10-03 02:49 | disposition home or self-care (01) ==
LOC: MW.ED 01:10
DX: N13.2 Hydronephrosis with renal and ureteral calculous obstruction (principal)
CPT/HCPCS: 36415; 74176; 80053; 81001; 81025; 85025; 96372; 99284; A9270; J1885